=== PATIENT | male | born 1955 ===

== ENCOUNTER 2021-10-15 07:03 | Outpatient (CLI) | payer BC | END 2021-10-15 07:04 | disposition home or self-care (01) | LOC: CSHCP 07:03 | PROVIDERS: ATTEND Internal Medicine Critical Care Medicine | DX: J45.909 Unspecified asthma, uncomplicated (principal); R94.2 Abnormal results of pulmonary function studies | CPT/HCPCS: 94060; 94726; 94729; 94760 ==